=== PATIENT | female | born 1945 | race Two or more races ===

== ENCOUNTER → 2017-08-15 | Outpatient (CLI) | payer MEDICARE, OTHER ==
[2017-08-15 15:24] LABS: BASOPHILS % (AUTO) 0.7 % (0.0-2.0); EOSINOPHILS % (AUTO) 3.4 % (1.0-6.0); HEMATOCRIT 35.1 % (36-46); LYMPHOCYTES # (AUTO) 1.1 K/uL (1.0-4.8); LYMPHOCYTES % (AUTO) 13.4 % (22.0-44.0); MEAN CORPUSCULAR HEMOGLOBIN 26.7 pg (26.0-34.0); MEAN CORPUSCULAR HGB CONC 34.1 G/dL (31.0-37.0); MEAN CORPUSCULAR VOLUME 78 fL (80-100); MONOCYTES # (AUTO) 0.6 K/uL (0.1-1.0); MONOCYTES % (AUTO) 7.6 % (2.0-9.0); NEUTROPHILS # (AUTO) 6.3 K/uL (1.8-7.7); NEUTROPHILS % (AUTO) 74.9 % (40.0-70.0); PLATELET COUNT (AUTO) 362 K/uL (150-450); RED BLOOD CELL COUNT(AUTO) 4.48 MIL/uL (4.00-5.20); RED CELL DISTRIBUTION WIDTH 16.4 % (11.5-14.5)
[2017-08-15 15:36] LABS: HEMOGLOBIN A1C 7.2 % (4.5-6.2)
[2017-08-15 15:37] LABS: ALANINE AMINOTRANSFERASE 18 U/L (12-78); ALBUMIN 3.2 g/dL (3.4-5.0); ALKALINE PHOSPHATASE 92 U/L (46-116); ANION GAP 9 mmol/L (8-16); ASPARTATE AMINOTRANSFERASE 22 U/L (15-37); BILIRUBIN,TOTAL 0.4 mg/dL (0.1-1.0); CALCIUM, TOTAL 9.6 mg/dL (8.8-10.5); CARBON DIOXIDE 27 mmol/L (22-29); CHLORIDE 98 mmol/L (98-107); CREATININE 0.66 mg/dL (0.60-1.30); GLOMERULAR FILTR. RATE CALC > 60 mL/min (>60); GLUCOSE,RANDOM 139 mg/dL (70-110); HDL CHOLESTEROL 47 mg/dL (40-60); POTASSIUM 4.9 mmol/L (3.5-5.1); SODIUM SERUM 134 mmol/L (136-145); TOTAL PROTEIN, SERUM 9.5 g/dL (6.4-8.2); TRIGLYCERIDES 76 mg/dL (15-150); UREA NITROGEN, BLOOD 25 mg/dL (7-18)
[2017-08-15 16:44] LABS: CHOLESTEROL 141 mg/dL (131-200); LDL CHOL (CALC.) 79 mg/dL (0-130)
== END | disposition home or self-care (01) ==
LOC: LABPV 08:17
PROVIDERS: ATTEND Family Medicine
DX: I10 Essential (primary) hypertension (principal); E11.69 Type 2 diabetes mellitus with other specified complication
CPT/HCPCS: 82043; 82570; 83036

== ENCOUNTER → 2018-02-06 | Outpatient (CLI) | payer MEDICARE, OTHER ==
[2018-02-06 10:56] LABS: BASOPHILS % (AUTO) 0.4 % (0.0-2.0); EOSINOPHILS % (AUTO) 2.1 % (1.0-6.0); HEMATOCRIT 33.9 % (36-46); HEMOGLOBIN 11.4 g/dL (12.0-16.0); LYMPHOCYTES # (AUTO) 1.1 K/uL (1.0-4.8); MEAN CORPUSCULAR HEMOGLOBIN 25.6 pg (26.0-34.0); MEAN CORPUSCULAR HGB CONC 33.7 G/dL (31.0-37.0); MEAN CORPUSCULAR VOLUME 76 fL (80-100); MONOCYTES # (AUTO) 0.5 K/uL (0.1-1.0); MONOCYTES % (AUTO) 5.9 % (2.0-9.0); NEUTROPHILS # (AUTO) 7.2 K/uL (1.8-7.7); NEUTROPHILS % (AUTO) 79.6 % (40.0-70.0); PLATELET COUNT (AUTO) 415 K/uL (150-450); RED BLOOD CELL COUNT(AUTO) 4.47 MIL/uL (4.00-5.20); RED CELL DISTRIBUTION WIDTH 16.5 % (11.5-14.5)
[2018-02-06 11:04] LABS: HEMOGLOBIN A1C 7.1 % (4.5-6.2)
[2018-02-06 11:07] LABS: ALANINE AMINOTRANSFERASE 15 U/L (12-78); ALKALINE PHOSPHATASE 107 U/L (46-116); ANION GAP 5 mmol/L (8-16); ASPARTATE AMINOTRANSFERASE 17 U/L (15-37); BILIRUBIN,TOTAL 0.4 mg/dL (0.1-1.0); CALCIUM, TOTAL 9.3 mg/dL (8.8-10.5); CARBON DIOXIDE 30 mmol/L (22-29); CHLORIDE 99 mmol/L (98-107); CHOLESTEROL 129 mg/dL (131-200); CREATININE 0.76 mg/dL (0.60-1.30); GLUCOSE,RANDOM 140 mg/dL (70-110); HDL CHOLESTEROL 43 mg/dL (40-60); LDL CHOL (CALC.) 75 mg/dL (0-130); SODIUM SERUM 134 mmol/L (136-145); TOTAL PROTEIN, SERUM 9.6 g/dL (6.4-8.2); TRIGLYCERIDES 56 mg/dL (15-150)
[2018-02-06 11:08] LABS: GLOMERULAR FILTR. RATE CALC > 60 mL/min (>60); UREA NITROGEN, BLOOD 7 mg/dL (7-18)
== END | disposition home or self-care (01) ==
LOC: LABPV 08:37
PROVIDERS: ATTEND Nurse Practitioner
DX: I10 Essential (primary) hypertension (principal); E11.9 Type 2 diabetes mellitus without complications; E78.5 Hyperlipidemia, unspecified; E55.9 Vitamin D deficiency, unspecified
CPT/HCPCS: 82043; 82306; 82570; 83036

== ENCOUNTER 2018-07-13 15:39 | Inpatient (IN) | payer MEDICARE, OTHER ==
[~2018-07-13] VITALS: Ht 162.6 cm; Wt 53.5 kg
[2018-07-13 15:53] LABS: GLUCOSE,POINT OF CARE 201 MG/DL (70-110)
[2018-07-13] MEDS ORDERED: AMLO2.5T4 PO (15:55)
[2018-07-13] MEDS ORDERED: HYDR25TA PO (15:55)
[2018-07-13] MEDS ORDERED: METF-960 PO (15:55)
[2018-07-13] MEDS ORDERED: ASPI-1182 PO (15:55)
[2018-07-13 17:40] LABS: GLUCOSE,POINT OF CARE 166 MG/DL (70-110)
[2018-07-13 17:46] LABS: BASOPHILS % (AUTO) 0.7 % (0.0-2.0); EOSINOPHILS % (AUTO) 1.1 % (1.0-6.0); HEMATOCRIT 27.4 % (36-46); HEMOGLOBIN 9.2 g/dL (12.0-16.0); LYMPHOCYTES # (AUTO) 0.6 K/uL (1.0-4.8); MEAN CORPUSCULAR HEMOGLOBIN 23.7 pg (26.0-34.0); MEAN CORPUSCULAR HGB CONC 33.6 G/dL (31.0-37.0); MEAN CORPUSCULAR VOLUME 71 fL (80-100); MONOCYTES # (AUTO) 0.8 K/uL (0.1-1.0); MONOCYTES % (AUTO) 6.3 % (2.0-9.0); NEUTROPHILS # (AUTO) 10.4 K/uL (1.8-7.7); PLATELET COUNT (AUTO) 543 K/uL (150-450); RED BLOOD CELL COUNT(AUTO) 3.89 MIL/uL (4.00-5.20); RED CELL DISTRIBUTION WIDTH 17.5 % (11.5-14.5)
[2018-07-13 18:04] LABS: APPEARANCE,URINE CLOUDY (CLEAR); BILIRUBIN,URINE NEGATIVE (NEGATIVE); GLUCOSE, URINE (UA) >=1000 mg/dL (NEGATIVE); KETONES,URINE NEGATIVE (NEGATIVE); LEUKOCYTE ESTERASE ,URINE TRACE (NEGATIVE); NITRATE,URINE POSITIVE (NEGATIVE); OCCULT BLOOD,URINE NEGATIVE (NEGATIVE); PROTEIN,URINE NEGATIVE (NEGATIVE)
[2018-07-13 18:04] LABS: NEUTROPHILS % (AUTO) 86.9 % (40.0-70.0)
[2018-07-13 18:05] LABS: ANION GAP 11 mmol/L (8-16); CALCIUM, TOTAL 9.2 mg/dL (8.8-10.5); CARBON DIOXIDE 25 mmol/L (22-29); CHLORIDE 92 mmol/L (98-107); CREATININE 0.63 mg/dL (0.60-1.30); GLUCOSE,RANDOM 171 mg/dL (70-110); POTASSIUM 3.7 mmol/L (3.5-5.1); SODIUM SERUM 128 mmol/L (136-145); UREA NITROGEN, BLOOD 16 mg/dL (7-18)
[2018-07-13 18:08] LABS: GLOMERULAR FILTR. RATE CALC > 60 mL/min (>60)
[2018-07-13 18:10] LABS: ALANINE AMINOTRANSFERASE 12 U/L (12-78); ALBUMIN 2.4 g/dL (3.4-5.0); ALKALINE PHOSPHATASE 97 U/L (46-116); ASPARTATE AMINOTRANSFERASE 12 U/L (15-37); BILIRUBIN,TOTAL 0.4 mg/dL (0.1-1.0); TOTAL PROTEIN, SERUM 9.1 g/dL (6.4-8.2)
[2018-07-13 18:13] LABS: BACTERIA,URINE Moderate /HPF (None Seen); RBC,URINE None Seen /HPF (0-2)
[2018-07-13 18:14] LABS: SQUAMOUS EPITHELIAL CELL,UR Few /LPF (None Seen)
[2018-07-13] MEDS ORDERED: AZITHROMYCIN 500 MG/NS 250 ML IV ONE (18:30)
[2018-07-13] MEDS ORDERED: SODIUM CHLORIDE 0.9% 1,000 ML IV ONE ×3 (18:30→18:45)
[2018-07-13] MEDS ORDERED: CefTRIAXone 1 GM/DEXTROSE 50 ML IV ONE (18:30)
[2018-07-13 18:40] LABS: INFLUENZA TYPE A NEGATIVE FOR TYPE A (NEGATIVE); INFLUENZA TYPE B NEGATIVE FOR TYPE B (NEGATIVE)
[2018-07-13] MEDS ORDERED: ACETAMINOPHEN 325 MG TABLET PO PRN ×2 (18:45→19:45)
[2018-07-13] MEDS ORDERED: ONDANSETRON HCL 4 MG/2 ML VIAL IVP PRN ×2 (18:45→19:45)
[2018-07-13] MEDS ORDERED: 0.9% SODIUM CHLORIDE 10 ML SYRINGE IVP PRN (18:45)
[2018-07-13] MEDS ORDERED: ALBUTEROL SULFATE 2.5 MG/0.5 ML NEB SOLUTION NEB PRN (19:45)
[2018-07-13] MEDS ORDERED: BISACODYL 10 MG RECTAL RECTAL SUPPOSITORY PR PRN (19:45)
[2018-07-13] MEDS ORDERED: MORPHINE SULFATE 2 MG/ML SYRINGE IVP PRN (19:45)
[2018-07-13] MEDS ORDERED: ZOLPIDEM TARTRATE 5 MG TABLET PO PRN (19:45)
[2018-07-13] MEDS ORDERED: OxyCODONE HCL/ACETAMINOPHEN 5-325 MG TABLET PO PRN (19:45)
[2018-07-13] MEDS ORDERED: IPRATROPIUM BROMIDE 0.5 MG/2.5 ML NEB SOLUTION NEB PRN (19:45)
[2018-07-13] MEDS ORDERED: MAGNESIUM HYDROXIDE SUSPENSION 30 ML UDCUP PO PRN (19:45)
[2018-07-13] MEDS: HEPARIN SODIUM,PORCINE 5,000 UNITS/ML VIAL SQ SCH (21:00)
[2018-07-13 21:36] VITALS: BP 125/66
[2018-07-13] MEDS ORDERED: LISI10TA PO (22:56)
[2018-07-13] MEDS ORDERED: SITA100 PO (22:56)
[2018-07-13] MEDS ORDERED: ATOR40TA71 PO (22:56)
[2018-07-13] MEDS ORDERED: METF-444 PO (22:58)
[2018-07-13] MEDS ORDERED: AMLO-511 PO (22:58)
[2018-07-13 23:57] VITALS: BP 115/66
[2018-07-14 05:09] VITALS: BP 110/59
[2018-07-14] MEDS ORDERED: DEXTROSE 50%-WATER 25 GM/50 ML SYRINGE IVP PRN (06:00)
[2018-07-14 06:11] LABS: HEMOGLOBIN A1C 7.7 % (4.5-6.2)
[2018-07-14 06:12] LABS: BASOPHILS % (AUTO) 0.8 % (0.0-2.0); EOSINOPHILS % (AUTO) 2.2 % (1.0-6.0); HEMOGLOBIN 8.9 g/dL (12.0-16.0); LYMPHOCYTES # (AUTO) 0.7 K/uL (1.0-4.8); LYMPHOCYTES % (AUTO) 8.5 % (22.0-44.0); MEAN CORPUSCULAR HEMOGLOBIN 23.9 pg (26.0-34.0); MEAN CORPUSCULAR VOLUME 73 fL (80-100); MONOCYTES # (AUTO) 0.7 K/uL (0.1-1.0); MONOCYTES % (AUTO) 8.3 % (2.0-9.0); NEUTROPHILS # (AUTO) 6.6 K/uL (1.8-7.7); NEUTROPHILS % (AUTO) 80.2 % (40.0-70.0); PLATELET COUNT (AUTO) 495 K/uL (150-450); RED BLOOD CELL COUNT(AUTO) 3.73 MIL/uL (4.00-5.20)
[2018-07-14 06:28] LABS: % IRON SATURATION 15.5 % (22-44); ALANINE AMINOTRANSFERASE 8 U/L (12-78); ALBUMIN 2.1 g/dL (3.4-5.0); ALKALINE PHOSPHATASE 86 U/L (46-116); ANION GAP 7 mmol/L (8-16); ASPARTATE AMINOTRANSFERASE 12 U/L (15-37); BILIRUBIN,TOTAL 0.3 mg/dL (0.1-1.0); CALCIUM, TOTAL 8.7 mg/dL (8.8-10.5); CARBON DIOXIDE 26 mmol/L (22-29); CHLORIDE 99 mmol/L (98-107); CHOLESTEROL 101 mg/dL (131-200); CREATININE 0.53 mg/dL (0.60-1.30); GLUCOSE,RANDOM 126 mg/dL (70-110); HDL CHOLESTEROL 25 mg/dL (40-60); IRON, SERUM 21 mcg/dL (50-175); LDL CHOL (CALC.) 60 mg/dL (0-130); PHOSPHORUS 2.7 mg/dL (2.5-4.9); POTASSIUM 4.1 mmol/L (3.5-5.1); SODIUM SERUM 132 mmol/L (136-145); THYROID STIMULATING HORMONE 1.88 uIU/mL (0.36-3.74); TOTAL IRON BINDING CAPACITY 135 mcg/dL (250-450); TOTAL PROTEIN, SERUM 8.2 g/dL (6.4-8.2); TRIGLYCERIDES 78 mg/dL (15-150); UREA NITROGEN, BLOOD 10 mg/dL (7-18)
[2018-07-14 06:31] LABS: GLOMERULAR FILTR. RATE CALC > 60 mL/min (>60)
[2018-07-14 07:12] VITALS: BP 122/63
[2018-07-14] MEDS: HEPARIN SODIUM,PORCINE 5,000 UNITS/ML VIAL SQ SCH ×2 (08:43→21:00)
[2018-07-14] MEDS: FAMOTIDINE 20 MG TABLET PO SCH (08:43)
[2018-07-14 11:04] VITALS: BP 111/52
[2018-07-14 12:02] VITALS: BP 111/52
[2018-07-14] MEDS: INSULIN LISPRO 100 UNITS/ML SQ PRN ×3 (12:06→21:35)
[2018-07-14] MEDS ORDERED: SODIUM CHLORIDE 0.9% 500 ML IV ONE (13:40)
[2018-07-14 15:10] VITALS: BP 104/51
[2018-07-14] MEDS ORDERED: HALOPERIDOL LACTATE 5 MG/ML VIAL IVP ONE (16:15)
[2018-07-14] MEDS: CefTRIAXone 1 GM/DEXTROSE 50 ML IV SCH (16:21)
[2018-07-14 17:20] LABS: ABG A-A DIFF O2 33.7 mmHg (10-20.0); ABG CARBOXYHEMOGLOBIN 0.4 % (0.0-1.5); ABG HCO3 24.6 mmol/L (22.0-26.0); ABG METHEMOGLOBIN 0.1 % (0.0-1.5); ABG OXYGEN SATURATION 94.2 % (95.0-98.0); ABG OXYHEMOGLOBIN 93.7 % (94.0-100.0); ABG PCO2 36 mmHg (35-45); ABG PH 7.443 (7.35-7.450); ABG TOTAL HEMOGLOBIN 10.6 G/dL (12.0-18.0); PO2, ARTERIAL BG 72.9 mmHg (75.0-83.0); SOURCE, BLOOD GAS ARTERIAL; TEMPERATURE, FAHRENHEIT, BG 98.6 FAHREN (96.0-98.6)
[2018-07-14 17:24] LABS: O2 DEVICE,BLOOD GAS ROOM AIR (ROOM AIR); SITE, BLOOD GAS RT RADIAL
[2018-07-14] MEDS: AZITHROMYCIN 500 MG/NS 250 ML IV SCH (17:31)
[2018-07-14 21:11] VITALS: BP 111/52
[2018-07-14 21:16] LABS: GLUCOMETER DEV NAME(LOC) 5N.1; GLUCOSE,POINT OF CARE 129 MG/DL (70-110)
[2018-07-14 21:16] LABS: GLUCOMETER DEV NAME(LOC) 5N.1; GLUCOSE,POINT OF CARE 203 MG/DL (70-110)
[2018-07-14 23:06] LABS: GLUCOMETER DEV NAME(LOC) 5S.1; GLUCOSE,POINT OF CARE 225 MG/DL (70-110)
[2018-07-14 23:06] LABS: GLUCOMETER DEV NAME(LOC) 5S.1; GLUCOSE,POINT OF CARE 207 MG/DL (70-110)
[2018-07-15 00:41] VITALS: BP 98/45
[2018-07-15 04:15] VITALS: BP 103/52
[2018-07-15] MEDS: INSULIN LISPRO 100 UNITS/ML SQ PRN ×4 (05:50→21:02)
[2018-07-15 06:12] LABS: BASOPHILS % (AUTO) 0.9 % (0.0-2.0); EOSINOPHILS % (AUTO) 2.2 % (1.0-6.0); HEMATOCRIT 27.1 % (36-46); HEMOGLOBIN 8.8 g/dL (12.0-16.0); LYMPHOCYTES # (AUTO) 0.8 K/uL (1.0-4.8); LYMPHOCYTES % (AUTO) 9.2 % (22.0-44.0); MEAN CORPUSCULAR HEMOGLOBIN 23.2 pg (26.0-34.0); MEAN CORPUSCULAR HGB CONC 32.5 G/dL (31.0-37.0); MEAN CORPUSCULAR VOLUME 71 fL (80-100); MONOCYTES # (AUTO) 0.8 K/uL (0.1-1.0); MONOCYTES % (AUTO) 9.6 % (2.0-9.0); NEUTROPHILS # (AUTO) 6.7 K/uL (1.8-7.7); NEUTROPHILS % (AUTO) 78.1 % (40.0-70.0); PLATELET COUNT (AUTO) 497 K/uL (150-450); RED CELL DISTRIBUTION WIDTH 17.5 % (11.5-14.5)
[2018-07-15 06:31] LABS: ALANINE AMINOTRANSFERASE 8 U/L (12-78); ALKALINE PHOSPHATASE 82 U/L (46-116); ANION GAP 6 mmol/L (8-16); ASPARTATE AMINOTRANSFERASE 12 U/L (15-37); BILIRUBIN,TOTAL 0.3 mg/dL (0.1-1.0); CALCIUM, TOTAL 8.9 mg/dL (8.8-10.5); CARBON DIOXIDE 26 mmol/L (22-29); CHLORIDE 101 mmol/L (98-107); CREATININE 0.54 mg/dL (0.60-1.30); GLUCOSE,RANDOM 123 mg/dL (70-110); SODIUM SERUM 133 mmol/L (136-145); UREA NITROGEN, BLOOD 8 mg/dL (7-18)
[2018-07-15 06:36] LABS: GLOMERULAR FILTR. RATE CALC > 60 mL/min (>60)
[2018-07-15 06:39] LABS: GLUCOMETER DEV NAME(LOC) 5S.1; GLUCOSE,POINT OF CARE 146 MG/DL (70-110)
[2018-07-15] MEDS: FAMOTIDINE 20 MG TABLET PO SCH (07:39)
[2018-07-15] MEDS: HEPARIN SODIUM,PORCINE 5,000 UNITS/ML VIAL SQ SCH ×2 (07:39→20:40)
[2018-07-15 07:46] VITALS: BP 117/68
[2018-07-15 13:09] LABS: GLUCOMETER DEV NAME(LOC) 5N.1; GLUCOSE,POINT OF CARE 323 MG/DL (70-110)
[2018-07-15 15:43] VITALS: BP 109/53
[2018-07-15] MEDS: AZITHROMYCIN 500 MG/NS 250 ML IV SCH (17:14)
[2018-07-15] MEDS: CefTRIAXone 1 GM/DEXTROSE 50 ML IV SCH (17:14)
[2018-07-15 17:28] LABS: GLUCOMETER DEV NAME(LOC) 4E.; GLUCOSE,POINT OF CARE 235 MG/DL (70-110)
[2018-07-15 20:16] VITALS: BP 123/65
[2018-07-15 22:59] LABS: GLUCOMETER DEV NAME(LOC) 4E.; GLUCOSE,POINT OF CARE 226 MG/DL (70-110)
[2018-07-15 23:42] VITALS: BP 123/60
[2018-07-16 04:56] VITALS: BP 110/62
[2018-07-16] MEDS: INSULIN LISPRO 100 UNITS/ML SQ PRN ×4 (06:14→22:32)
[2018-07-16 08:01] VITALS: BP 119/63
[2018-07-16 08:09] LABS: GLUCOMETER DEV NAME(LOC) 4E.; GLUCOSE,POINT OF CARE 171 MG/DL (70-110)
[2018-07-16] MEDS: HEPARIN SODIUM,PORCINE 5,000 UNITS/ML VIAL SQ SCH ×2 (08:35→20:18)
[2018-07-16] MEDS: FAMOTIDINE 20 MG TABLET PO SCH (08:36)
[2018-07-16 12:10] VITALS: BP 122/71
[2018-07-16 13:39] LABS: GLUCOMETER DEV NAME(LOC) 4E.; GLUCOSE,POINT OF CARE 251 MG/DL (70-110)
[2018-07-16 16:01] VITALS: BP 141/65
[2018-07-16] MEDS: AZITHROMYCIN 500 MG/NS 250 ML IV SCH (17:30)
[2018-07-16] MEDS: CefTRIAXone 1 GM/DEXTROSE 50 ML IV SCH (17:30)
[2018-07-16] MEDS: ETHAMBUTOL HCL 400 MG TABLET PO SCH (17:31)
[2018-07-16] MEDS: ISONIAZID 300 MG TABLET PO SCH (17:31)
[2018-07-16] MEDS: PYRIDOXINE HCL 50 MG TABLET PO SCH (17:31)
[2018-07-16] MEDS: RIFAMPIN 300 MG CAPSULE PO SCH (17:31)
[2018-07-16] MEDS: PYRAZINAMIDE 500 MG TABLET PO SCH (17:31)
[2018-07-16 19:58] LABS: GLUCOMETER DEV NAME(LOC) 4E.; GLUCOSE,POINT OF CARE 278 MG/DL (70-110)
[2018-07-16 20:00] VITALS: BP 101/75
[2018-07-17] MEDS: BENZONATATE 100 MG CAPSULE PO PRN ×3 (00:27→20:35)
[2018-07-17 00:32] VITALS: BP 117/59
[2018-07-17 02:34] LABS: GLUCOMETER DEV NAME(LOC) 4E.; GLUCOSE,POINT OF CARE 184 MG/DL (70-110)
[2018-07-17] MEDS: INSULIN LISPRO 100 UNITS/ML SQ PRN ×4 (05:56→20:35)
[2018-07-17 06:06] VITALS: BP 121/66
[2018-07-17 06:15] LABS: GLUCOMETER DEV NAME(LOC) 6N.2; GLUCOSE,POINT OF CARE 169 MG/DL (70-110)
[2018-07-17 08:00] VITALS: BP 120/58
[2018-07-17] MEDS: HEPARIN SODIUM,PORCINE 5,000 UNITS/ML VIAL SQ SCH ×2 (08:52→20:27)
[2018-07-17] MEDS: RIFAMPIN 300 MG CAPSULE PO SCH (08:52)
[2018-07-17] MEDS: PYRIDOXINE HCL 50 MG TABLET PO SCH (08:52)
[2018-07-17] MEDS: ISONIAZID 300 MG TABLET PO SCH (08:53)
[2018-07-17] MEDS: PYRAZINAMIDE 500 MG TABLET PO SCH (08:53)
[2018-07-17] MEDS: ETHAMBUTOL HCL 400 MG TABLET PO SCH (08:53)
[2018-07-17] MEDS: FAMOTIDINE 20 MG TABLET PO SCH (08:53)
[2018-07-17 11:30] VITALS: BP 124/60
[2018-07-17 16:00] VITALS: BP 126/63
[2018-07-17] MEDS: CefTRIAXone 1 GM/DEXTROSE 50 ML IV SCH (16:54)
[2018-07-17] MEDS: AZITHROMYCIN 500 MG/NS 250 ML IV SCH (18:06)
[2018-07-17 20:28] LABS: GLUCOMETER DEV NAME(LOC) 6N.2; GLUCOSE,POINT OF CARE 222 MG/DL (70-110)
[2018-07-17 20:50] VITALS: BP 123/69
[2018-07-17] MEDS ORDERED: SODIUM CHLORIDE 0.9% 500 ML IV ONE (21:04)
[2018-07-18] VITALS (7 sets, daily range): BP systolic 115–130; BP diastolic 51–65
[2018-07-18 05:14] LABS: GLUCOMETER DEV NAME(LOC) 4E.; GLUCOSE,POINT OF CARE 146 MG/DL (70-110)
[2018-07-18 05:14] LABS: GLUCOMETER DEV NAME(LOC) 4E.; GLUCOSE,POINT OF CARE 253 MG/DL (70-110)
[2018-07-18] MEDS: INSULIN LISPRO 100 UNITS/ML SQ PRN ×4 (06:15→20:01)
[2018-07-18 06:54] LABS: GLUCOMETER DEV NAME(LOC) 4E.; GLUCOSE,POINT OF CARE 151 MG/DL (70-110)
[2018-07-18] MEDS: BENZONATATE 100 MG CAPSULE PO PRN ×2 (08:06→19:41)
[2018-07-18] MEDS: ETHAMBUTOL HCL 400 MG TABLET PO SCH (08:06)
[2018-07-18] MEDS: FAMOTIDINE 20 MG TABLET PO SCH (08:06)
[2018-07-18] MEDS: RIFAMPIN 300 MG CAPSULE PO SCH (08:06)
[2018-07-18] MEDS: ISONIAZID 300 MG TABLET PO SCH (08:06)
[2018-07-18] MEDS: PYRAZINAMIDE 500 MG TABLET PO SCH (08:06)
[2018-07-18] MEDS: PYRIDOXINE HCL 50 MG TABLET PO SCH (08:06)
[2018-07-18] MEDS: HEPARIN SODIUM,PORCINE 5,000 UNITS/ML VIAL SQ SCH ×3 (08:07→19:51)
[2018-07-18 10:10] LABS: ORGANISM ID Not indicated.; S PNEUMO SOURCE Urine; STREP PNEUMONIAE AG URINE Negative (Negative); STREP.PNEUMO BODY FLUID CULT. Not Indicated
[2018-07-18 12:19] LABS: GLUCOMETER DEV NAME(LOC) 4E.; GLUCOSE,POINT OF CARE 235 MG/DL (70-110)
[2018-07-18 14:08] LABS: QUANTIFERON+, Nil Value 0.05 IU/mL; QUANTIFERON+,TB1 Antigen Value 3.37 IU/mL; QUANTIFERON+,TB2 Antigen Value 2.94 IU/mL; QUANTIFERON, TB GOLD PLUS Positive (Negative)
[2018-07-18] MEDS: AZITHROMYCIN 500 MG/NS 250 ML IV SCH (17:47)
[2018-07-18] MEDS: CefTRIAXone 1 GM/DEXTROSE 50 ML IV SCH (17:47)
[2018-07-18 21:04] LABS: GLUCOMETER DEV NAME(LOC) 4E.; GLUCOSE,POINT OF CARE 214 MG/DL (70-110)
[2018-07-18 21:04] LABS: GLUCOMETER DEV NAME(LOC) 4E.; GLUCOSE,POINT OF CARE 266 MG/DL (70-110)
[2018-07-19 04:10] VITALS: BP 111/62
[2018-07-19] MEDS: INSULIN LISPRO 100 UNITS/ML SQ PRN ×4 (05:53→21:26)
[2018-07-19 06:04] LABS: GLUCOMETER DEV NAME(LOC) 6N.2; GLUCOSE,POINT OF CARE 179 MG/DL (70-110)
[2018-07-19 06:39] LABS: BASOPHILS % (AUTO) 0.5 % (0.0-2.0); EOSINOPHILS % (AUTO) 6.1 % (1.0-6.0); HEMATOCRIT 26.9 % (36-46); HEMOGLOBIN 8.9 g/dL (12.0-16.0); LYMPHOCYTES # (AUTO) 0.8 K/uL (1.0-4.8); LYMPHOCYTES % (AUTO) 10.1 % (22.0-44.0); MEAN CORPUSCULAR HEMOGLOBIN 23.7 pg (26.0-34.0); MEAN CORPUSCULAR HGB CONC 33.1 G/dL (31.0-37.0); MEAN CORPUSCULAR VOLUME 72 fL (80-100); MONOCYTES # (AUTO) 0.6 K/uL (0.1-1.0); MONOCYTES % (AUTO) 7.4 % (2.0-9.0); NEUTROPHILS # (AUTO) 6.1 K/uL (1.8-7.7); NEUTROPHILS % (AUTO) 75.9 % (40.0-70.0); PLATELET COUNT (AUTO) 497 K/uL (150-450); RED BLOOD CELL COUNT(AUTO) 3.76 MIL/uL (4.00-5.20); RED CELL DISTRIBUTION WIDTH 17.7 % (11.5-14.5)
[2018-07-19 06:56] LABS: ALANINE AMINOTRANSFERASE 9 U/L (12-78); ALKALINE PHOSPHATASE 91 U/L (46-116); ANION GAP 8 mmol/L (8-16); ASPARTATE AMINOTRANSFERASE 8 U/L (15-37); BILIRUBIN,TOTAL 0.4 mg/dL (0.1-1.0); CALCIUM, TOTAL 9.1 mg/dL (8.8-10.5); CARBON DIOXIDE 25 mmol/L (22-29); CHLORIDE 100 mmol/L (98-107); CREATININE 0.47 mg/dL (0.60-1.30); GLUCOSE,RANDOM 184 mg/dL (70-110); SODIUM SERUM 133 mmol/L (136-145); TOTAL PROTEIN, SERUM 7.7 g/dL (6.4-8.2); UREA NITROGEN, BLOOD 9 mg/dL (7-18)
[2018-07-19 07:02] LABS: GLOMERULAR FILTR. RATE CALC > 60 mL/min (>60)
[2018-07-19 08:03] VITALS: BP 105/61
[2018-07-19] MEDS: BENZONATATE 100 MG CAPSULE PO PRN ×3 (08:11→22:36)
[2018-07-19] MEDS: ISONIAZID 300 MG TABLET PO SCH (08:11)
[2018-07-19] MEDS: RIFAMPIN 300 MG CAPSULE PO SCH (08:11)
[2018-07-19] MEDS: ETHAMBUTOL HCL 400 MG TABLET PO SCH (08:11)
[2018-07-19] MEDS: PYRIDOXINE HCL 50 MG TABLET PO SCH (08:11)
[2018-07-19] MEDS: FAMOTIDINE 20 MG TABLET PO SCH (08:11)
[2018-07-19] MEDS: PYRAZINAMIDE 500 MG TABLET PO SCH (08:11)
[2018-07-19] MEDS: HEPARIN SODIUM,PORCINE 5,000 UNITS/ML VIAL SQ SCH ×2 (08:12→21:00)
[2018-07-19 11:12] VITALS: BP 129/62
[2018-07-19 11:59] LABS: GLUCOMETER DEV NAME(LOC) 4E.; GLUCOSE,POINT OF CARE 319 MG/DL (70-110)
[2018-07-19 16:23] VITALS: BP 129/64
[2018-07-19 19:35] VITALS: BP 121/63
[2018-07-19 19:59] LABS: GLUCOMETER DEV NAME(LOC) 6N.2; GLUCOSE,POINT OF CARE 355 MG/DL (70-110)
[2018-07-19 23:11] VITALS: BP 112/57
[2018-07-20 03:58] VITALS: BP 131/66
[2018-07-20 06:25] LABS: GLUCOMETER DEV NAME(LOC) 4E.; GLUCOSE,POINT OF CARE 284 MG/DL (70-110)
[2018-07-20 06:25] LABS: GLUCOMETER DEV NAME(LOC) 4E.; GLUCOSE,POINT OF CARE 163 MG/DL (70-110)
[2018-07-20 06:25] LABS: GLUCOMETER DEV NAME(LOC) 4E.; GLUCOSE,POINT OF CARE 249 MG/DL (70-110)
[2018-07-20 08:10] VITALS: BP 121/68
[2018-07-20] MEDS: HEPARIN SODIUM,PORCINE 5,000 UNITS/ML VIAL SQ SCH ×4 (09:00→21:16)
[2018-07-20] MEDS: RIFAMPIN 300 MG CAPSULE PO SCH (09:02)
[2018-07-20] MEDS: FAMOTIDINE 20 MG TABLET PO SCH (09:02)
[2018-07-20] MEDS: ETHAMBUTOL HCL 400 MG TABLET PO SCH (09:03)
[2018-07-20] MEDS: PYRAZINAMIDE 500 MG TABLET PO SCH (09:03)
[2018-07-20] MEDS: PYRIDOXINE HCL 50 MG TABLET PO SCH (09:03)
[2018-07-20] MEDS: ISONIAZID 300 MG TABLET PO SCH (09:03)
[2018-07-20 11:00] VITALS: BP 132/67
[2018-07-20] MEDS: INSULIN LISPRO 100 UNITS/ML SQ PRN ×3 (12:15→21:16)
[2018-07-20 15:46] VITALS: BP 128/62
[2018-07-20 17:25] LABS: GLUCOMETER DEV NAME(LOC) 4E.; GLUCOSE,POINT OF CARE 360 MG/DL (70-110)
[2018-07-20 19:42] VITALS: BP 122/57
[2018-07-20 19:58] LABS: GLUCOMETER DEV NAME(LOC) 6N.2; GLUCOSE,POINT OF CARE 236 MG/DL (70-110)
[2018-07-20] MEDS: BENZONATATE 100 MG CAPSULE PO PRN (21:16)
[2018-07-20 23:06] VITALS: BP 142/78
[2018-07-21 02:34] LABS: GLUCOMETER DEV NAME(LOC) 6N.2; GLUCOSE,POINT OF CARE 285 MG/DL (70-110)
[2018-07-21 04:09] VITALS: BP 129/98
[2018-07-21] MEDS: INSULIN LISPRO 100 UNITS/ML SQ PRN ×4 (05:54→20:55)
[2018-07-21 08:10] VITALS: BP 115/56
[2018-07-21] MEDS: FAMOTIDINE 20 MG TABLET PO SCH (08:50)
[2018-07-21] MEDS: ISONIAZID 300 MG TABLET PO SCH (08:50)
[2018-07-21] MEDS: PYRAZINAMIDE 500 MG TABLET PO SCH (08:50)
[2018-07-21] MEDS: RIFAMPIN 300 MG CAPSULE PO SCH (08:50)
[2018-07-21] MEDS: HEPARIN SODIUM,PORCINE 5,000 UNITS/ML VIAL SQ SCH ×2 (08:50→21:00)
[2018-07-21] MEDS: PYRIDOXINE HCL 50 MG TABLET PO SCH (08:50)
[2018-07-21] MEDS: ETHAMBUTOL HCL 400 MG TABLET PO SCH (08:50)
[2018-07-21 09:34] LABS: GLUCOMETER DEV NAME(LOC) 6N.2; GLUCOSE,POINT OF CARE 181 MG/DL (70-110)
[2018-07-21 12:02] VITALS: BP 119/61
[2018-07-21 14:19] LABS: GLUCOMETER DEV NAME(LOC) 6N.2; GLUCOSE,POINT OF CARE 310 MG/DL (70-110)
[2018-07-21 15:52] VITALS: BP 133/64
[2018-07-21 19:32] VITALS: BP 125/59
[2018-07-21 23:14] VITALS: BP 119/71
[2018-07-22 01:15] LABS: GLUCOMETER DEV NAME(LOC) 6N.2; GLUCOSE,POINT OF CARE 304 MG/DL (70-110)
[2018-07-22 05:02] VITALS: BP 119/59
[2018-07-22 05:29] LABS: GLUCOMETER DEV NAME(LOC) 4E.; GLUCOSE,POINT OF CARE 219 MG/DL (70-110)
[2018-07-22 05:44] LABS: GLUCOMETER DEV NAME(LOC) 4E.; GLUCOSE,POINT OF CARE 195 MG/DL (70-110)
[2018-07-22] MEDS: INSULIN LISPRO 100 UNITS/ML SQ PRN ×4 (05:48→20:37)
[2018-07-22 06:15] LABS: BASOPHILS % (AUTO) 0.6 % (0.0-2.0); EOSINOPHILS % (AUTO) 5.2 % (1.0-6.0); HEMATOCRIT 28.5 % (36-46); HEMOGLOBIN 9.2 g/dL (12.0-16.0); LYMPHOCYTES # (AUTO) 1.1 K/uL (1.0-4.8); LYMPHOCYTES % (AUTO) 14.2 % (22.0-44.0); MEAN CORPUSCULAR HEMOGLOBIN 23.6 pg (26.0-34.0); MEAN CORPUSCULAR HGB CONC 32.2 G/dL (31.0-37.0); MEAN CORPUSCULAR VOLUME 73 fL (80-100); MONOCYTES # (AUTO) 0.6 K/uL (0.1-1.0); NEUTROPHILS # (AUTO) 5.5 K/uL (1.8-7.7); PLATELET COUNT (AUTO) 468 K/uL (150-450); RED CELL DISTRIBUTION WIDTH 17.9 % (11.5-14.5)
[2018-07-22 06:22] LABS: ALANINE AMINOTRANSFERASE 8 U/L (12-78); ALKALINE PHOSPHATASE 90 U/L (46-116); ANION GAP 6 mmol/L (8-16); ASPARTATE AMINOTRANSFERASE 13 U/L (15-37); BILIRUBIN,TOTAL 0.3 mg/dL (0.1-1.0); CALCIUM, TOTAL 9.1 mg/dL (8.8-10.5); CARBON DIOXIDE 27 mmol/L (22-29); CHLORIDE 101 mmol/L (98-107); CREATININE 0.54 mg/dL (0.60-1.30); GLUCOSE,RANDOM 203 mg/dL (70-110); POTASSIUM 3.9 mmol/L (3.5-5.1); SODIUM SERUM 134 mmol/L (136-145); TOTAL PROTEIN, SERUM 7.5 g/dL (6.4-8.2); UREA NITROGEN, BLOOD 12 mg/dL (7-18)
[2018-07-22 06:23] LABS: GLOMERULAR FILTR. RATE CALC > 60 mL/min (>60)
[2018-07-22 08:42] VITALS: BP 124/62
[2018-07-22] MEDS: HEPARIN SODIUM,PORCINE 5,000 UNITS/ML VIAL SQ SCH ×3 (09:00→20:41)
[2018-07-22] MEDS: FAMOTIDINE 20 MG TABLET PO SCH (09:24)
[2018-07-22] MEDS: ISONIAZID 300 MG TABLET PO SCH (09:24)
[2018-07-22] MEDS: ETHAMBUTOL HCL 400 MG TABLET PO SCH (09:24)
[2018-07-22] MEDS: RIFAMPIN 300 MG CAPSULE PO SCH (09:25)
[2018-07-22] MEDS: PYRAZINAMIDE 500 MG TABLET PO SCH (09:25)
[2018-07-22] MEDS: PYRIDOXINE HCL 50 MG TABLET PO SCH (09:25)
[2018-07-22 09:56] LABS: MTB NUCL.ACID AMPLIF W/O AFBCS Positive (Negative)
[2018-07-22 11:46] VITALS: BP 131/65
[2018-07-22 15:49] VITALS: BP 118/62
[2018-07-22 19:13] LABS: GLUCOMETER DEV NAME(LOC) 4E.; GLUCOSE,POINT OF CARE 297 MG/DL (70-110)
[2018-07-22 19:58] LABS: GLUCOMETER DEV NAME(LOC) 6N.2; GLUCOSE,POINT OF CARE 339 MG/DL (70-110)
[2018-07-22 20:00] VITALS: BP 134/72
[2018-07-22] MEDS: BENZONATATE 100 MG CAPSULE PO PRN (20:51)
[2018-07-22 23:46] VITALS: BP 129/76
[2018-07-23 00:29] LABS: GLUCOMETER DEV NAME(LOC) 4E.; GLUCOSE,POINT OF CARE 332 MG/DL (70-110)
[2018-07-23 04:00] VITALS: BP 133/66
[2018-07-23] MEDS: INSULIN LISPRO 100 UNITS/ML SQ PRN ×4 (05:36→20:11)
[2018-07-23 07:38] VITALS: BP 115/64
[2018-07-23] MEDS: PYRIDOXINE HCL 50 MG TABLET PO SCH (08:11)
[2018-07-23] MEDS: RIFAMPIN 300 MG CAPSULE PO SCH (08:11)
[2018-07-23] MEDS: ISONIAZID 300 MG TABLET PO SCH (08:11)
[2018-07-23] MEDS: PYRAZINAMIDE 500 MG TABLET PO SCH (08:11)
[2018-07-23] MEDS: ETHAMBUTOL HCL 400 MG TABLET PO SCH (08:11)
[2018-07-23] MEDS: FAMOTIDINE 20 MG TABLET PO SCH (08:11)
[2018-07-23] MEDS: HEPARIN SODIUM,PORCINE 5,000 UNITS/ML VIAL SQ SCH ×2 (08:17→20:13)
[2018-07-23 08:37] LABS: HIV 1-2 SCREEN 4TH GEN W/RFLX Non Reactive (Non Reactive)
[2018-07-23 08:39] LABS: GLUCOMETER DEV NAME(LOC) 6N.2; GLUCOSE,POINT OF CARE 163 MG/DL (70-110)
[2018-07-23 11:21] VITALS: BP 132/60
[2018-07-23 15:24] VITALS: BP 132/72
[2018-07-23 15:44] LABS: GLUCOMETER DEV NAME(LOC) 6N.2; GLUCOSE,POINT OF CARE 323 MG/DL (70-110)
[2018-07-23 20:00] VITALS: BP 130/68
[2018-07-23 22:44] LABS: GLUCOMETER DEV NAME(LOC) 4E.; GLUCOSE,POINT OF CARE 230 MG/DL (70-110)
[2018-07-24] VITALS (7 sets, daily range): BP systolic 114–141; BP diastolic 56–73
[2018-07-24 00:10] LABS: GLUCOMETER DEV NAME(LOC) 6N.2; GLUCOSE,POINT OF CARE 237 MG/DL (70-110)
[2018-07-24] MEDS: INSULIN LISPRO 100 UNITS/ML SQ PRN ×4 (05:53→21:11)
[2018-07-24 06:24] LABS: GLUCOMETER DEV NAME(LOC) 4E.; GLUCOSE,POINT OF CARE 179 MG/DL (70-110)
[2018-07-24] MEDS: ETHAMBUTOL HCL 400 MG TABLET PO SCH (07:49)
[2018-07-24] MEDS: PYRIDOXINE HCL 50 MG TABLET PO SCH (07:49)
[2018-07-24] MEDS: ISONIAZID 300 MG TABLET PO SCH (07:49)
[2018-07-24] MEDS: FAMOTIDINE 20 MG TABLET PO SCH (07:49)
[2018-07-24] MEDS: BENZONATATE 100 MG CAPSULE PO PRN ×2 (07:49→21:36)
[2018-07-24] MEDS: RIFAMPIN 300 MG CAPSULE PO SCH (07:49)
[2018-07-24] MEDS: HEPARIN SODIUM,PORCINE 5,000 UNITS/ML VIAL SQ SCH ×2 (07:50→21:00)
[2018-07-24] MEDS: PYRAZINAMIDE 500 MG TABLET PO SCH (07:50)
[2018-07-24 11:24] LABS: GLUCOMETER DEV NAME(LOC) 4E.; GLUCOSE,POINT OF CARE 311 MG/DL (70-110)
[2018-07-24 18:39] LABS: GLUCOMETER DEV NAME(LOC) 4E.; GLUCOSE,POINT OF CARE 211 MG/DL (70-110)
[2018-07-24 21:58] LABS: GLUCOMETER DEV NAME(LOC) 4E.; GLUCOSE,POINT OF CARE 287 MG/DL (70-110)
[2018-07-25] VITALS (7 sets, daily range): BP systolic 111–134; BP diastolic 56–66
[2018-07-25] MEDS: INSULIN LISPRO 100 UNITS/ML SQ PRN ×4 (06:28→20:48)
[2018-07-25 06:39] LABS: GLUCOMETER DEV NAME(LOC) 4E.; GLUCOSE,POINT OF CARE 148 MG/DL (70-110)
[2018-07-25] MEDS: PYRIDOXINE HCL 50 MG TABLET PO SCH (07:59)
[2018-07-25] MEDS: PYRAZINAMIDE 500 MG TABLET PO SCH (07:59)
[2018-07-25] MEDS: RIFAMPIN 300 MG CAPSULE PO SCH (07:59)
[2018-07-25] MEDS: BENZONATATE 100 MG CAPSULE PO PRN ×2 (07:59→22:02)
[2018-07-25] MEDS: ETHAMBUTOL HCL 400 MG TABLET PO SCH (07:59)
[2018-07-25] MEDS: HEPARIN SODIUM,PORCINE 5,000 UNITS/ML VIAL SQ SCH ×2 (07:59→20:49)
[2018-07-25] MEDS: FAMOTIDINE 20 MG TABLET PO SCH (08:00)
[2018-07-25] MEDS: ISONIAZID 300 MG TABLET PO SCH (08:00)
[2018-07-25 11:28] LABS: GLUCOMETER DEV NAME(LOC) 4E.; GLUCOSE,POINT OF CARE 226 MG/DL (70-110)
[2018-07-25 17:54] LABS: GLUCOMETER DEV NAME(LOC) 4E.; GLUCOSE,POINT OF CARE 166 MG/DL (70-110)
[2018-07-25 22:14] LABS: GLUCOMETER DEV NAME(LOC) 4E.; GLUCOSE,POINT OF CARE 223 MG/DL (70-110)
[2018-07-26 05:57] VITALS: BP 129/63
[2018-07-26] MEDS: INSULIN LISPRO 100 UNITS/ML SQ PRN ×4 (06:04→21:31)
[2018-07-26 06:24] LABS: BASOPHILS % (AUTO) 0.6 % (0.0-2.0); EOSINOPHILS % (AUTO) 6.3 % (1.0-6.0); HEMOGLOBIN 9.5 g/dL (12.0-16.0); LYMPHOCYTES % (AUTO) 16.5 % (22.0-44.0); MEAN CORPUSCULAR HEMOGLOBIN 24.3 pg (26.0-34.0); MEAN CORPUSCULAR HGB CONC 32.6 G/dL (31.0-37.0); MEAN CORPUSCULAR VOLUME 75 fL (80-100); MONOCYTES # (AUTO) 0.5 K/uL (0.1-1.0); MONOCYTES % (AUTO) 8.4 % (2.0-9.0); NEUTROPHILS # (AUTO) 4.2 K/uL (1.8-7.7); NEUTROPHILS % (AUTO) 68.2 % (40.0-70.0); PLATELET COUNT (AUTO) 442 K/uL (150-450); RED BLOOD CELL COUNT(AUTO) 3.89 MIL/uL (4.00-5.20); RED CELL DISTRIBUTION WIDTH 18.9 % (11.5-14.5)
[2018-07-26 06:43] LABS: ALANINE AMINOTRANSFERASE 12 U/L (12-78); ALBUMIN 2.1 g/dL (3.4-5.0); ALKALINE PHOSPHATASE 91 U/L (46-116); ANION GAP 7 mmol/L (8-16); ASPARTATE AMINOTRANSFERASE 14 U/L (15-37); BILIRUBIN,TOTAL 0.2 mg/dL (0.1-1.0); CALCIUM, TOTAL 9.2 mg/dL (8.8-10.5); CARBON DIOXIDE 28 mmol/L (22-29); CHLORIDE 101 mmol/L (98-107); GLUCOSE,RANDOM 196 mg/dL (70-110); POTASSIUM 3.9 mmol/L (3.5-5.1); SODIUM SERUM 136 mmol/L (136-145); TOTAL PROTEIN, SERUM 7.8 g/dL (6.4-8.2); UREA NITROGEN, BLOOD 13 mg/dL (7-18)
[2018-07-26 06:44] LABS: GLOMERULAR FILTR. RATE CALC > 60 mL/min (>60)
[2018-07-26 07:29] LABS: GLUCOMETER DEV NAME(LOC) 6N.2; GLUCOSE,POINT OF CARE 201 MG/DL (70-110)
[2018-07-26 07:58] VITALS: BP 115/60
[2018-07-26] MEDS: HEPARIN SODIUM,PORCINE 5,000 UNITS/ML VIAL SQ SCH ×2 (08:32→21:00)
[2018-07-26] MEDS: ETHAMBUTOL HCL 400 MG TABLET PO SCH (08:32)
[2018-07-26] MEDS: FAMOTIDINE 20 MG TABLET PO SCH (08:32)
[2018-07-26] MEDS: RIFAMPIN 300 MG CAPSULE PO SCH (08:32)
[2018-07-26] MEDS: ISONIAZID 300 MG TABLET PO SCH (08:32)
[2018-07-26] MEDS: PYRIDOXINE HCL 50 MG TABLET PO SCH (08:32)
[2018-07-26] MEDS: PYRAZINAMIDE 500 MG TABLET PO SCH (08:32)
[2018-07-26 11:34] VITALS: BP 124/64
[2018-07-26 15:19] LABS: GLUCOMETER DEV NAME(LOC) 4E.; GLUCOSE,POINT OF CARE 157 MG/DL (70-110)
[2018-07-26 16:10] VITALS: BP 133/66
[2018-07-26 19:19] LABS: GLUCOMETER DEV NAME(LOC) 4E.; GLUCOSE,POINT OF CARE 186 MG/DL (70-110)
[2018-07-26 20:07] VITALS: BP 132/59
[2018-07-26] MEDS: BENZONATATE 100 MG CAPSULE PO PRN (21:31)
[2018-07-26 23:04] LABS: GLUCOMETER DEV NAME(LOC) 4E.; GLUCOSE,POINT OF CARE 204 MG/DL (70-110)
[2018-07-26 23:35] VITALS: BP 123/60
[2018-07-27 04:35] VITALS: BP 127/54
[2018-07-27] MEDS: BENZONATATE 100 MG CAPSULE PO PRN (05:35)
[2018-07-27 06:50] LABS: BASOPHILS % (AUTO) 0.8 % (0.0-2.0); EOSINOPHILS % (AUTO) 5.3 % (1.0-6.0); HEMATOCRIT 30.1 % (36-46); HEMOGLOBIN 9.7 g/dL (12.0-16.0); LYMPHOCYTES # (AUTO) 1.1 K/uL (1.0-4.8); LYMPHOCYTES % (AUTO) 16.2 % (22.0-44.0); MEAN CORPUSCULAR HEMOGLOBIN 24.3 pg (26.0-34.0); MEAN CORPUSCULAR HGB CONC 32.3 G/dL (31.0-37.0); MEAN CORPUSCULAR VOLUME 75 fL (80-100); MONOCYTES # (AUTO) 0.5 K/uL (0.1-1.0); MONOCYTES % (AUTO) 6.9 % (2.0-9.0); NEUTROPHILS # (AUTO) 4.9 K/uL (1.8-7.7); NEUTROPHILS % (AUTO) 70.8 % (40.0-70.0); PLATELET COUNT (AUTO) 442 K/uL (150-450); RED CELL DISTRIBUTION WIDTH 19.5 % (11.5-14.5)
[2018-07-27 07:11] LABS: ANION GAP 8 mmol/L (8-16); CALCIUM, TOTAL 9.1 mg/dL (8.8-10.5); CARBON DIOXIDE 28 mmol/L (22-29); CHLORIDE 101 mmol/L (98-107); GLUCOSE,RANDOM 135 mg/dL (70-110); POTASSIUM 3.9 mmol/L (3.5-5.1); SODIUM SERUM 137 mmol/L (136-145); UREA NITROGEN, BLOOD 13 mg/dL (7-18)
[2018-07-27 07:14] LABS: GLOMERULAR FILTR. RATE CALC > 60 mL/min (>60)
[2018-07-27 07:49] LABS: GLUCOMETER DEV NAME(LOC) 4E.; GLUCOSE,POINT OF CARE 135 MG/DL (70-110)
[2018-07-27 08:01] VITALS: BP 109/58
[2018-07-27] MEDS: HEPARIN SODIUM,PORCINE 5,000 UNITS/ML VIAL SQ SCH ×2 (08:26→21:00)
[2018-07-27] MEDS: PYRAZINAMIDE 500 MG TABLET PO SCH (09:46)
[2018-07-27] MEDS: ISONIAZID 300 MG TABLET PO SCH (09:46)
[2018-07-27] MEDS: PYRIDOXINE HCL 50 MG TABLET PO SCH (09:46)
[2018-07-27] MEDS: ETHAMBUTOL HCL 400 MG TABLET PO SCH (09:46)
[2018-07-27] MEDS: RIFAMPIN 300 MG CAPSULE PO SCH (09:46)
[2018-07-27] MEDS: FAMOTIDINE 20 MG TABLET PO SCH (09:46)
[2018-07-27 11:54] VITALS: BP 136/70
[2018-07-27] MEDS: INSULIN LISPRO 100 UNITS/ML SQ PRN ×2 (13:18→18:12)
[2018-07-27 13:50] LABS: GLUCOMETER DEV NAME(LOC) 4E.; GLUCOSE,POINT OF CARE 265 MG/DL (70-110)
[2018-07-27 16:08] VITALS: BP 132/69
[2018-07-27 17:39] LABS: GLUCOMETER DEV NAME(LOC) 4E.; GLUCOSE,POINT OF CARE 220 MG/DL (70-110)
[2018-07-27 20:16] VITALS: BP 131/71
[2018-07-27 21:39] LABS: GLUCOMETER DEV NAME(LOC) 6N.2; GLUCOSE,POINT OF CARE 86 MG/DL (70-110)
[2018-07-28] VITALS (7 sets, daily range): BP systolic 117–144; BP diastolic 59–74
[2018-07-28] MEDS: INSULIN LISPRO 100 UNITS/ML SQ PRN ×4 (05:55→20:43)
[2018-07-28 06:14] LABS: GLUCOMETER DEV NAME(LOC) 6N.2; GLUCOSE,POINT OF CARE 192 MG/DL (70-110)
[2018-07-28] MEDS: PYRIDOXINE HCL 50 MG TABLET PO SCH (08:28)
[2018-07-28] MEDS: PYRAZINAMIDE 500 MG TABLET PO SCH (08:28)
[2018-07-28] MEDS: HEPARIN SODIUM,PORCINE 5,000 UNITS/ML VIAL SQ SCH ×2 (08:28→21:00)
[2018-07-28] MEDS: ETHAMBUTOL HCL 400 MG TABLET PO SCH (08:28)
[2018-07-28] MEDS: FAMOTIDINE 20 MG TABLET PO SCH (08:28)
[2018-07-28] MEDS: RIFAMPIN 300 MG CAPSULE PO SCH (08:28)
[2018-07-28] MEDS: ISONIAZID 300 MG TABLET PO SCH (08:28)
[2018-07-28 12:34] LABS: GLUCOMETER DEV NAME(LOC) 6N.2; GLUCOSE,POINT OF CARE 219 MG/DL (70-110)
[2018-07-28 19:31] LABS: GLUCOMETER DEV NAME(LOC) 6N.2; GLUCOSE,POINT OF CARE 165 MG/DL (70-110)
[2018-07-28 21:12] LABS: GLUCOMETER DEV NAME(LOC) 4E.; GLUCOSE,POINT OF CARE 231 MG/DL (70-110)
[2018-07-28] MEDS: BENZONATATE 100 MG CAPSULE PO PRN (22:31)
[2018-07-29 04:15] VITALS: BP 137/64
[2018-07-29] MEDS: INSULIN LISPRO 100 UNITS/ML SQ PRN ×3 (05:42→20:27)
[2018-07-29 05:55] LABS: GLUCOMETER DEV NAME(LOC) 4E.; GLUCOSE,POINT OF CARE 158 MG/DL (70-110)
[2018-07-29 07:10] VITALS: BP 106/73
[2018-07-29] MEDS: PYRIDOXINE HCL 50 MG TABLET PO SCH (09:06)
[2018-07-29] MEDS: ETHAMBUTOL HCL 400 MG TABLET PO SCH (09:06)
[2018-07-29] MEDS: RIFAMPIN 300 MG CAPSULE PO SCH (09:06)
[2018-07-29] MEDS: PYRAZINAMIDE 500 MG TABLET PO SCH (09:06)
[2018-07-29] MEDS: HEPARIN SODIUM,PORCINE 5,000 UNITS/ML VIAL SQ SCH ×2 (09:06→20:26)
[2018-07-29] MEDS: ISONIAZID 300 MG TABLET PO SCH (09:06)
[2018-07-29] MEDS: FAMOTIDINE 20 MG TABLET PO SCH (09:07)
[2018-07-29 11:10] VITALS: BP 142/74
[2018-07-29 12:49] LABS: GLUCOMETER DEV NAME(LOC) 6N.2; GLUCOSE,POINT OF CARE 201 MG/DL (70-110)
[2018-07-29 15:13] VITALS: BP 139/70
[2018-07-29 17:55] LABS: GLUCOMETER DEV NAME(LOC) 6N.2; GLUCOSE,POINT OF CARE 162 MG/DL (70-110)
[2018-07-29 19:52] VITALS: BP 143/71
[2018-07-29] MEDS: BENZONATATE 100 MG CAPSULE PO PRN (20:26)
[2018-07-29 23:45] VITALS: BP 127/61
[2018-07-30 00:24] LABS: GLUCOMETER DEV NAME(LOC) 6N.2; GLUCOSE,POINT OF CARE 252 MG/DL (70-110)
[2018-07-30 05:57] VITALS: BP 135/66
[2018-07-30] MEDS: INSULIN LISPRO 100 UNITS/ML SQ PRN ×3 (06:18→20:57)
[2018-07-30] MEDS: BENZONATATE 100 MG CAPSULE PO PRN ×2 (06:18→20:53)
[2018-07-30 08:13] VITALS: BP 124/65
[2018-07-30] MEDS: ETHAMBUTOL HCL 400 MG TABLET PO SCH (08:56)
[2018-07-30] MEDS: RIFAMPIN 300 MG CAPSULE PO SCH (08:57)
[2018-07-30] MEDS: PYRAZINAMIDE 500 MG TABLET PO SCH (08:57)
[2018-07-30] MEDS: PYRIDOXINE HCL 50 MG TABLET PO SCH (08:57)
[2018-07-30] MEDS: FAMOTIDINE 20 MG TABLET PO SCH (08:57)
[2018-07-30] MEDS: ISONIAZID 300 MG TABLET PO SCH (08:57)
[2018-07-30] MEDS: HEPARIN SODIUM,PORCINE 5,000 UNITS/ML VIAL SQ SCH ×2 (09:00→20:53)
[2018-07-30 12:25] VITALS: BP 116/66
[2018-07-30 15:59] VITALS: BP 135/67
[2018-07-30 20:50] VITALS: BP 116/54
[2018-07-31 00:25] VITALS: BP 127/60
[2018-07-31] MEDS: INSULIN LISPRO 100 UNITS/ML SQ PRN ×4 (05:52→21:10)
[2018-07-31 05:53] VITALS: BP 138/62
[2018-07-31 06:44] LABS: EOSINOPHILS % (AUTO) 4.1 % (1.0-6.0); HEMATOCRIT 31.6 % (36-46); HEMOGLOBIN 10.2 g/dL (12.0-16.0); LYMPHOCYTES # (AUTO) 0.8 K/uL (1.0-4.8); LYMPHOCYTES % (AUTO) 11.7 % (22.0-44.0); MEAN CORPUSCULAR HEMOGLOBIN 24.5 pg (26.0-34.0); MEAN CORPUSCULAR HGB CONC 32.3 G/dL (31.0-37.0); MEAN CORPUSCULAR VOLUME 76 fL (80-100); MONOCYTES # (AUTO) 0.4 K/uL (0.1-1.0); MONOCYTES % (AUTO) 6.3 % (2.0-9.0); NEUTROPHILS # (AUTO) 5.4 K/uL (1.8-7.7); NEUTROPHILS % (AUTO) 76.9 % (40.0-70.0); PLATELET COUNT (AUTO) 417 K/uL (150-450); RED BLOOD CELL COUNT(AUTO) 4.17 MIL/uL (4.00-5.20); RED CELL DISTRIBUTION WIDTH 20.7 % (11.5-14.5)
[2018-07-31 07:51] LABS: ALANINE AMINOTRANSFERASE 16 U/L (12-78); ALBUMIN 2.4 g/dL (3.4-5.0); ALKALINE PHOSPHATASE 97 U/L (46-116); ANION GAP 6 mmol/L (8-16); ASPARTATE AMINOTRANSFERASE 19 U/L (15-37); BILIRUBIN,TOTAL 0.3 mg/dL (0.1-1.0); CALCIUM, TOTAL 9.4 mg/dL (8.8-10.5); CARBON DIOXIDE 28 mmol/L (22-29); CHLORIDE 101 mmol/L (98-107); CREATININE 0.62 mg/dL (0.60-1.30); GLUCOSE,RANDOM 192 mg/dL (70-110); SODIUM SERUM 135 mmol/L (136-145); TOTAL PROTEIN, SERUM 8.5 g/dL (6.4-8.2); UREA NITROGEN, BLOOD 16 mg/dL (7-18)
[2018-07-31 07:54] LABS: GLOMERULAR FILTR. RATE CALC > 60 mL/min (>60)
[2018-07-31 08:10] VITALS: BP 129/67
[2018-07-31] MEDS: ETHAMBUTOL HCL 400 MG TABLET PO SCH (08:45)
[2018-07-31] MEDS: ISONIAZID 300 MG TABLET PO SCH (08:45)
[2018-07-31] MEDS: PYRAZINAMIDE 500 MG TABLET PO SCH (08:45)
[2018-07-31] MEDS: FAMOTIDINE 20 MG TABLET PO SCH (08:45)
[2018-07-31] MEDS: RIFAMPIN 300 MG CAPSULE PO SCH (08:46)
[2018-07-31] MEDS: PYRIDOXINE HCL 50 MG TABLET PO SCH (08:46)
[2018-07-31] MEDS: HEPARIN SODIUM,PORCINE 5,000 UNITS/ML VIAL SQ SCH ×2 (08:46→21:09)
[2018-07-31 12:02] VITALS: BP 134/63
[2018-07-31 16:02] VITALS: BP 153/83
[2018-07-31 20:04] VITALS: BP 134/50
[2018-08-01] VITALS: BP 128/64
[2018-08-01 05:47] VITALS: BP 122/63
[2018-08-01 07:58] VITALS: BP 124/59
[2018-08-01] MEDS: PYRAZINAMIDE 500 MG TABLET PO SCH (08:31)
[2018-08-01] MEDS: ETHAMBUTOL HCL 400 MG TABLET PO SCH (08:31)
[2018-08-01] MEDS: RIFAMPIN 300 MG CAPSULE PO SCH (08:31)
[2018-08-01] MEDS: HEPARIN SODIUM,PORCINE 5,000 UNITS/ML VIAL SQ SCH ×2 (08:32→21:40)
[2018-08-01] MEDS: FAMOTIDINE 20 MG TABLET PO SCH (08:32)
[2018-08-01] MEDS: PYRIDOXINE HCL 50 MG TABLET PO SCH (08:32)
[2018-08-01] MEDS: ISONIAZID 300 MG TABLET PO SCH (08:32)
[2018-08-01 11:21] VITALS: BP 144/73
[2018-08-01] MEDS: INSULIN LISPRO 100 UNITS/ML SQ PRN ×3 (12:05→21:41)
[2018-08-01 15:30] VITALS: BP 137/69
[2018-08-01 19:49] VITALS: BP 132/66
[2018-08-01 19:49] LABS: GLUCOMETER DEV NAME(LOC) 6N.2; GLUCOSE,POINT OF CARE 185 MG/DL (70-110)
[2018-08-01 19:49] LABS: GLUCOMETER DEV NAME(LOC) 6N.2; GLUCOSE,POINT OF CARE 203 MG/DL (70-110)
[2018-08-01 19:49] LABS: GLUCOMETER DEV NAME(LOC) 6N.2; GLUCOSE,POINT OF CARE 144 MG/DL (70-110)
[2018-08-01 19:49] LABS: GLUCOMETER DEV NAME(LOC) 6N.2; GLUCOSE,POINT OF CARE 175 MG/DL (70-110)
[2018-08-01 20:20] LABS: GLUCOMETER DEV NAME(LOC) 4E.; GLUCOSE,POINT OF CARE 110 MG/DL (70-110)
[2018-08-01 20:20] LABS: GLUCOMETER DEV NAME(LOC) 4E.; GLUCOSE,POINT OF CARE 172 MG/DL (70-110)
[2018-08-01 20:20] LABS: GLUCOMETER DEV NAME(LOC) 4E.; GLUCOSE,POINT OF CARE 219 MG/DL (70-110)
[2018-08-01 20:20] LABS: GLUCOMETER DEV NAME(LOC) 4E.; GLUCOSE,POINT OF CARE 183 MG/DL (70-110)
[2018-08-01 20:20] LABS: GLUCOMETER DEV NAME(LOC) 4E.; GLUCOSE,POINT OF CARE 137 MG/DL (70-110)
[2018-08-01 20:24] LABS: GLUCOMETER DEV NAME(LOC) 4E.; GLUCOSE,POINT OF CARE 122 MG/DL (70-110)
[2018-08-01 20:24] LABS: GLUCOMETER DEV NAME(LOC) 4E.; GLUCOSE,POINT OF CARE 195 MG/DL (70-110)
[2018-08-02] VITALS (7 sets, daily range): BP systolic 112–132; BP diastolic 54–87
[2018-08-02 01:44] LABS: GLUCOMETER DEV NAME(LOC) 6N.2; GLUCOSE,POINT OF CARE 149 MG/DL (70-110)
[2018-08-02] MEDS: INSULIN LISPRO 100 UNITS/ML SQ PRN ×4 (06:08→20:37)
[2018-08-02 06:35] LABS: GLUCOMETER DEV NAME(LOC) 6N.2; GLUCOSE,POINT OF CARE 166 MG/DL (70-110)
[2018-08-02] MEDS ORDERED: SODIUM CHLORIDE 0.9% 500 ML IV ONE (08:10)
[2018-08-02] MEDS: RIFAMPIN 300 MG CAPSULE PO SCH (08:57)
[2018-08-02] MEDS: HEPARIN SODIUM,PORCINE 5,000 UNITS/ML VIAL SQ SCH ×2 (08:57→20:32)
[2018-08-02] MEDS: PYRAZINAMIDE 500 MG TABLET PO SCH (08:58)
[2018-08-02] MEDS: FAMOTIDINE 20 MG TABLET PO SCH (08:58)
[2018-08-02] MEDS: ETHAMBUTOL HCL 400 MG TABLET PO SCH (08:58)
[2018-08-02] MEDS: PYRIDOXINE HCL 50 MG TABLET PO SCH (08:58)
[2018-08-02] MEDS: ISONIAZID 300 MG TABLET PO SCH (08:59)
[2018-08-02 12:49] LABS: GLUCOMETER DEV NAME(LOC) 6N.2; GLUCOSE,POINT OF CARE 252 MG/DL (70-110)
[2018-08-02 19:47] LABS: GLUCOMETER DEV NAME(LOC) 6N.2; GLUCOSE,POINT OF CARE 208 MG/DL (70-110)
[2018-08-03 04:43] VITALS: BP 108/45
[2018-08-03 05:19] LABS: GLUCOMETER DEV NAME(LOC) 6N.2; GLUCOSE,POINT OF CARE 202 MG/DL (70-110)
[2018-08-03] MEDS: INSULIN LISPRO 100 UNITS/ML SQ PRN ×4 (05:33→21:04)
[2018-08-03] MEDS: ETHAMBUTOL HCL 400 MG TABLET PO SCH (09:12)
[2018-08-03] MEDS: ISONIAZID 300 MG TABLET PO SCH (09:12)
[2018-08-03] MEDS: FAMOTIDINE 20 MG TABLET PO SCH (09:12)
[2018-08-03] MEDS: HEPARIN SODIUM,PORCINE 5,000 UNITS/ML VIAL SQ SCH ×2 (09:12→20:54)
[2018-08-03] MEDS: RIFAMPIN 300 MG CAPSULE PO SCH (09:12)
[2018-08-03] MEDS: PYRAZINAMIDE 500 MG TABLET PO SCH (09:12)
[2018-08-03] MEDS: PYRIDOXINE HCL 50 MG TABLET PO SCH (09:12)
[2018-08-03 09:19] LABS: GLUCOMETER DEV NAME(LOC) 4E.; GLUCOSE,POINT OF CARE 163 MG/DL (70-110)
[2018-08-03 12:59] LABS: GLUCOMETER DEV NAME(LOC) 4E.; GLUCOSE,POINT OF CARE 173 MG/DL (70-110)
[2018-08-03 15:52] VITALS: BP 122/59
[2018-08-03 17:39] LABS: GLUCOMETER DEV NAME(LOC) 4E.; GLUCOSE,POINT OF CARE 160 MG/DL (70-110)
[2018-08-03 19:21] VITALS: BP 127/65
[2018-08-03 21:19] LABS: GLUCOMETER DEV NAME(LOC) 6N.2; GLUCOSE,POINT OF CARE 182 MG/DL (70-110)
[2018-08-03 23:44] VITALS: BP 115/54
[2018-08-04 04:31] VITALS: BP 130/60
[2018-08-04 06:44] LABS: GLUCOMETER DEV NAME(LOC) 6N.2; GLUCOSE,POINT OF CARE 127 MG/DL (70-110)
[2018-08-04 08:01] VITALS: BP 119/70
[2018-08-04] MEDS: HEPARIN SODIUM,PORCINE 5,000 UNITS/ML VIAL SQ SCH ×2 (09:00→19:36)
[2018-08-04] MEDS: ETHAMBUTOL HCL 400 MG TABLET PO SCH (09:26)
[2018-08-04] MEDS: FAMOTIDINE 20 MG TABLET PO SCH (09:26)
[2018-08-04] MEDS: PYRIDOXINE HCL 50 MG TABLET PO SCH (09:26)
[2018-08-04] MEDS: PYRAZINAMIDE 500 MG TABLET PO SCH (09:26)
[2018-08-04] MEDS: RIFAMPIN 300 MG CAPSULE PO SCH (09:27)
[2018-08-04] MEDS: ISONIAZID 300 MG TABLET PO SCH (09:27)
[2018-08-04] MEDS: INSULIN LISPRO 100 UNITS/ML SQ PRN ×3 (12:02→20:28)
[2018-08-04 12:08] VITALS: BP 153/73
[2018-08-04 16:15] VITALS: BP 140/71
[2018-08-04 17:05] LABS: GLUCOMETER DEV NAME(LOC) 6N.2; GLUCOSE,POINT OF CARE 339 MG/DL (70-110)
[2018-08-04 19:42] VITALS: BP 146/69
[2018-08-04 20:01] LABS: GLUCOMETER DEV NAME(LOC) 4E.; GLUCOSE,POINT OF CARE 135 MG/DL (70-110)
[2018-08-04 22:56] LABS: GLUCOMETER DEV NAME(LOC) 4E.; GLUCOSE,POINT OF CARE 200 MG/DL (70-110)
[2018-08-04 23:24] VITALS: BP 137/55
[2018-08-05 04:28] VITALS: BP 123/60
[2018-08-05] MEDS: INSULIN LISPRO 100 UNITS/ML SQ PRN ×3 (05:53→21:43)
[2018-08-05 06:04] LABS: GLUCOMETER DEV NAME(LOC) 4E.; GLUCOSE,POINT OF CARE 224 MG/DL (70-110)
[2018-08-05 08:08] VITALS: BP 109/53
[2018-08-05 08:09] VITALS: BP 109/53
[2018-08-05] MEDS: HEPARIN SODIUM,PORCINE 5,000 UNITS/ML VIAL SQ SCH ×2 (09:57→21:41)
[2018-08-05] MEDS: RIFAMPIN 300 MG CAPSULE PO SCH (09:58)
[2018-08-05] MEDS: PYRIDOXINE HCL 50 MG TABLET PO SCH (09:58)
[2018-08-05] MEDS: PYRAZINAMIDE 500 MG TABLET PO SCH (09:58)
[2018-08-05] MEDS: ISONIAZID 300 MG TABLET PO SCH (09:58)
[2018-08-05] MEDS: FAMOTIDINE 20 MG TABLET PO SCH (09:58)
[2018-08-05] MEDS: ETHAMBUTOL HCL 400 MG TABLET PO SCH (09:58)
[2018-08-05 12:00] VITALS: BP 130/64
[2018-08-05] MEDS ORDERED: GLIP5 PO (12:38)
[2018-08-05] MEDS ORDERED: RIFA300 PO (12:39)
[2018-08-05] MEDS ORDERED: PYRI50TA13 PO (12:52)
[2018-08-05] MEDS ORDERED: PYRA500 PO (12:56)
[2018-08-05] MEDS ORDERED: ISON300 PO (12:57)
[2018-08-05 15:36] VITALS: BP 137/67
[2018-08-05] MEDS ORDERED: ITRACONAZOLE 100 MG CAPSULE PO SCH (16:00)
[2018-08-05 17:40] LABS: GLUCOMETER DEV NAME(LOC) 4E.; GLUCOSE,POINT OF CARE 218 MG/DL (70-110)
[2018-08-05 17:40] LABS: GLUCOMETER DEV NAME(LOC) 4E.; GLUCOSE,POINT OF CARE 93 MG/DL (70-110)
[2018-08-05 19:53] VITALS: BP 129/63
[2018-08-06] VITALS: BP 120/52
[2018-08-06 01:16] LABS: GLUCOMETER DEV NAME(LOC) 6N.2; GLUCOSE,POINT OF CARE 354 MG/DL (70-110)
[2018-08-06 04:00] VITALS: BP 124/63
[2018-08-06 06:18] LABS: BASOPHILS % (AUTO) 0.7 % (0.0-2.0); EOSINOPHILS % (AUTO) 6.9 % (1.0-6.0); HEMATOCRIT 30.1 % (36-46); LYMPHOCYTES # (AUTO) 0.8 K/uL (1.0-4.8); LYMPHOCYTES % (AUTO) 15.8 % (22.0-44.0); MEAN CORPUSCULAR HEMOGLOBIN 25.3 pg (26.0-34.0); MEAN CORPUSCULAR HGB CONC 33.2 G/dL (31.0-37.0); MEAN CORPUSCULAR VOLUME 76 fL (80-100); MONOCYTES # (AUTO) 0.5 K/uL (0.1-1.0); MONOCYTES % (AUTO) 9.2 % (2.0-9.0); NEUTROPHILS # (AUTO) 3.3 K/uL (1.8-7.7); NEUTROPHILS % (AUTO) 67.4 % (40.0-70.0); PLATELET COUNT (AUTO) 332 K/uL (150-450); RED BLOOD CELL COUNT(AUTO) 3.95 MIL/uL (4.00-5.20); RED CELL DISTRIBUTION WIDTH 21.3 % (11.5-14.5)
[2018-08-06 06:53] LABS: ALANINE AMINOTRANSFERASE 15 U/L (12-78); ALBUMIN 2.4 g/dL (3.4-5.0); ALKALINE PHOSPHATASE 82 U/L (46-116); ANION GAP 5 mmol/L (8-16); ASPARTATE AMINOTRANSFERASE 16 U/L (15-37); BILIRUBIN,TOTAL 0.3 mg/dL (0.1-1.0); CALCIUM, TOTAL 9.1 mg/dL (8.8-10.5); CARBON DIOXIDE 28 mmol/L (22-29); CHLORIDE 103 mmol/L (98-107); CREATININE 0.64 mg/dL (0.60-1.30); GLUCOSE,RANDOM 158 mg/dL (70-110); SODIUM SERUM 136 mmol/L (136-145); UREA NITROGEN, BLOOD 13 mg/dL (7-18)
[2018-08-06 06:57] LABS: GLOMERULAR FILTR. RATE CALC > 60 mL/min (>60)
[2018-08-06 07:19] LABS: GLUCOMETER DEV NAME(LOC) 6N.2; GLUCOSE,POINT OF CARE 167 MG/DL (70-110)
[2018-08-06 07:59] VITALS: BP 11/51
[2018-08-06] MEDS: HEPARIN SODIUM,PORCINE 5,000 UNITS/ML VIAL SQ SCH (09:00)
[2018-08-06] MEDS: ETHAMBUTOL HCL 400 MG TABLET PO SCH (09:39)
[2018-08-06] MEDS: PYRAZINAMIDE 500 MG TABLET PO SCH (09:40)
[2018-08-06] MEDS: ISONIAZID 300 MG TABLET PO SCH (09:40)
[2018-08-06] MEDS: PYRIDOXINE HCL 50 MG TABLET PO SCH (09:40)
[2018-08-06] MEDS: RIFAMPIN 300 MG CAPSULE PO SCH (09:40)
[2018-08-06] MEDS: FAMOTIDINE 20 MG TABLET PO SCH (09:40)
[2018-08-06] MEDS: INSULIN LISPRO 100 UNITS/ML SQ PRN (11:56)
[2018-08-06 12:15] VITALS: BP 137/58
[2018-08-06 13:34] LABS: GLUCOMETER DEV NAME(LOC) 6N.2; GLUCOSE,POINT OF CARE 272 MG/DL (70-110)
[2018-08-06 16:05] VITALS: BP 148/80
[2018-08-06] MEDS ORDERED: BENZ100C68 PO (17:07)
[2018-08-08] MEDS ORDERED: ITRACONAZOLE 100 MG CAPSULE PO SCH (21:00)
[2018-08-10 09:33] LABS: U HISTOPLASMA GALACTOMANNAN AG <0.5 (<0.5 ng/mL)
== END 2018-08-06 19:07 | disposition home or self-care (01) | DRG 871 ==
LOC: EMS 15:40 → 5S 20:00 → 4E 07-15 16:10
PROVIDERS: ADMIT Internal Medicine; ATTEND Internal Medicine
DX: A41.9 Sepsis, unspecified organism (principal); J18.9 Pneumonia, unspecified organism; E43 Unspecified severe protein-calorie malnutrition; N39.0 Urinary tract infection, site not specified; E87.1 Hypo-osmolality and hyponatremia; A15.0 Tuberculosis of lung; J44.0 Chronic obstructive pulmonary disease with (acute) lower respiratory infection; D50.9 Iron deficiency anemia, unspecified; I10 Essential (primary) hypertension; M19.90 Unspecified osteoarthritis, unspecified site; E11.9 Type 2 diabetes mellitus without complications; D63.8 Anemia in other chronic diseases classified elsewhere; D71 Functional disorders of polymorphonuclear neutrophils; F17.200 Nicotine dependence, unspecified, uncomplicated; Z91.11 Patient's noncompliance with dietary regimen; Z90.710 Acquired absence of both cervix and uterus; Z28.21 Immunization not carried out because of patient refusal; Z68.20 Body mass index [BMI] 20.0-20.9, adult
CPT/HCPCS: 36600; 71250; 82805; 83036; 83540; 83550; 83605; 83735; 84100; 84145; 84443; 86038; 86225; 86235; 86256; 86403; 86430; 86480; 86635; 86698; 87015; 87040; 87070; 87081; 87086; 87101; 87149; 87188; 87206; 87305; 87385; 87389; 87449; 87556; 87804; 87899; 93005; 93306; 94640; 96365; 96366; 96368; 99291; G0378; J0456; J0696; J1630; J1644; J7030; J7040

== ENCOUNTER → 2020-10-26 | Outpatient (CLI) | payer MEDICARE, OTHER ==
[~2020-10-26] MED LIST: ASPI-1444 PO; ATOR40TA71 PO; BENZ100C68 PO; GLIP5 PO; ISON300 PO; PYRA500 PO; PYRI-14 PO; RIFA300 PO
== END | disposition home or self-care (01) ==
LOC: CARDPV 11:08
PROVIDERS: ATTEND Nurse Practitioner
DX: M25.461 Effusion, right knee (principal)
CPT/HCPCS: 76881

== ENCOUNTER → 2021-03-14 | Outpatient (CLI) | payer MEDICARE, OTHER | END | disposition home or self-care (01) | LOC: RADMN 13:04 | PROVIDERS: ATTEND Nurse Practitioner | DX: M19.011 Primary osteoarthritis, right shoulder (principal); I70.0 Atherosclerosis of aorta; M85.811 Other specified disorders of bone density and structure, right shoulder | CPT/HCPCS: 73030-TC ==

== ENCOUNTER → 2021-04-02 | Outpatient (CLI) | payer MEDICARE, OTHER | END | disposition home or self-care (01) | LOC: RADMN 12:38 | PROVIDERS: ATTEND Nurse Practitioner | DX: M25.411 Effusion, right shoulder (principal); M19.011 Primary osteoarthritis, right shoulder; M75.31 Calcific tendinitis of right shoulder | CPT/HCPCS: 73221 ==

== ENCOUNTER → 2022-07-10 | Outpatient (CLI) | payer MEDICARE, OTHER ==
[~2022-07-10] MED LIST changes: -GLIP5 PO; +GLIP5TAB12 PO; -PYRA500 PO; +PYRA500T33 PO; -RIFA300 PO; +RIFA300C36 PO
== END | disposition home or self-care (01) ==
LOC: RADMN 13:43
PROVIDERS: ATTEND Nurse Practitioner
DX: J92.9 Pleural plaque without asbestos (principal); J44.1 Chronic obstructive pulmonary disease with (acute) exacerbation; M47.814 Spondylosis without myelopathy or radiculopathy, thoracic region; M85.88 Other specified disorders of bone density and structure, other site; Q25.46 Tortuous aortic arch; R05.9 Cough, unspecified
CPT/HCPCS: 71046